=== PATIENT | male | born 1985 | race Two or more races ===

== ENCOUNTER 2017-11-09 05:15 | Day surgery (SDC) | payer OTHER ==
[2017-11-09] VITALS (10 sets, daily range): BP systolic 111–130; BP diastolic 59–72
[~2017-11-09] VITALS: Ht 182.9 cm; Wt 98.9 kg
[~2017-11-09 05:15] MED LIST: IBUPROFEN600 MG ORAL
[2017-11-09] MEDS ORDERED: celeBREX 200mg Cap **SURGERY PATIENTS ONLY ORAL ONE ×2 (05:56→06:00)
[2017-11-09] MEDS ORDERED: ceFAZolin 1gm in D5W 55ml IVP ONE (06:00)
[2017-11-09] MEDS ORDERED: oxyCONTIN 20mg tab ORAL ONE (06:00)
[2017-11-09] MEDS ORDERED: Morphine Sulfate PF 10 ML ONE (06:38)
[2017-11-09] MEDS ORDERED: Kenalog-40 1ml Vial ONE (06:38)
[2017-11-09] MEDS ORDERED: Lidocaine 1% 10mg/ml/Epi 0.005mg/ml 30ml vial INJ ONE ×2 (06:39→09:18)
[2017-11-09] MEDS ORDERED: Ketorolac 30mg Inj ONE ×2 (06:39→07:30)
[2017-11-09] MEDS ORDERED: Bupivacaine 0.25% Inj 30ml INJ ONE (06:39)
[2017-11-09] MEDS ORDERED: Duramorph PF 10mg/10ml amp IV ONE (07:00)
--- NOTE | 2017-11-09 07:20 | Pre-Procedure Note/Attestation ---
Pre-Procedure Note/Attestation Complete Prior to Procedure Planned Procedure: right Procedure Narrative: knee diagnostic arthroscopy, removal of left knee hardware Indications for Procedure Pre-Operative Diagnosis: right knee painful hardware Attestation I attest that I discussed the nature of the procedure; its benefits; risks and complications; and alternatives (and the risks and benefits of such alternatives ), prior to the procedure, with the patient (or the patient's legal small business sales representative). I attest that, if there was a reasonable possibility of needing a blood transfusion, the patient (or the patient's legal small business sales representative) was given the [facility] standardized written summary, pursuant to the Rubin Don Blood Safety Act ([place] Health and Safety Code # 1645, as amended). I attest that I re-evaluated the patient just prior to the surgery and that there has been no change in the patient's H&P, except as documented below: SOFI ALEXANDER Nov 09, 2017 07:20
--- NOTE | 2017-11-09 07:20 | Operative Note - PDOC ---
Operative Note Operative Note Pre-op Diagnosis: right knee painful hardware Procedure: right knee diagnostic arthroscopy, removal of hardware Post-op Diagnosis: same as pre-op plus Operative Findings: consistent w/pre-op dx studies Anesthesia: MAC Specimen: none Complications: none Condition: stable Estimated Blood Loss: none Implant(s) used?: No SOFI ALEXANDER Nov 09, 2017 07:20
[2017-11-09] MEDS ORDERED: Sterile Water Irrig 1000ml IRRIG ONE (07:30)
[2017-11-09] MEDS ORDERED: NS Irrig 1000ml ONE (07:30)
[2017-11-09] MEDS ORDERED: D5 1/2NS 1,000 ML IV SCH (07:30)
[2017-11-09] MEDS ORDERED: NS Irrig 4000ml IRRIG ONE (07:30)
[2017-11-09] MEDS ORDERED: Propofol 200mg/20ml IV ONE (07:30)
[2017-11-09] MEDS ORDERED: Norco 5mg/325mg tab ORAL PRN (07:30)
[2017-11-09] MEDS ORDERED: Midazolam 2mg/2ml Inj ONE (07:30)
[2017-11-09] MEDS ORDERED: LR 1000ml ONE (07:30)
[2017-11-09] MEDS ORDERED: HYDROmorphone 1mg/ml Carpuject SUBQ PRN (07:30)
[2017-11-09] MEDS ORDERED: Tylenol #3 tab (300mg/30mg) ORAL PRN (07:30)
[2017-11-09] MEDS ORDERED: fentaNYL 100 mcg/2 mL IV ONE (07:30)
[2017-11-09] MEDS ORDERED: LR 1000ml 1,000 ML IVLG SCH (07:48)
--- NOTE | 2017-11-09 07:48 | Anethesia Preoperative Eval ---
Anesthesia Pre-op PMH/ROS General Date of Evaluation: Nov 09, 2017 Time of Evaluation: 06:58 Anesthesiologist: Satish ASA Score: ASA 2 Mallampati Score Class I : Soft palate, uvula, fauces, pillars visible Class II: Soft palate, uvula, fauces visible Class III: Soft palate, base of uvula visible Class IV: Only hard plate visible Mallampati Classification: Class II Surgeon: Emery Diagnosis: R knee pain Surgical Procedure: R knee scope hardwear remowal Anesthesia History: none Family History: no anesthesia problems Allergies: Coded Allergies: No Known Allergies (Unverified , 11/08/17) Medications: see eMAR Past Medical History Cardiovascular: Denies: HTN, CAD, [place], valve dz, arrhythmia, other Pulmonary: Denies: asthma, COPD, DAVID, other Gastrointestinal/Genitourinary: Reports: GERD - mild, Denies: CRI, ESRD, other Neurologic/Psychiatric: Denies: dementia, CVA, depression/anxiety, TIA, other Endocrine: Denies: DM, hypothyroidism, steroids, other HEENT: Denies: cataract (L), cataract (R), glaucoma, KOBUK (L), KOBUK (R), other Hematology/Immune: Denies: anemia, DVT, bleeding disorder, other Musculoskeletal/Integumentary: Denies: OA, RA, DJD, DDD, edema, other Other: other - overweight PMH Narrative: as above PSxH Narrative: Multiple ortho Sx Anesthesia Pre-op Phys. Exam Physician Exam Last Vital Signs Date Time Temp Pulse Resp B/P (MAP) Pulse Ox O2 Delivery O2 Flow Rate FiO2 11/09/17 05:42 97.7 57 20 121/72 96 Room Air Constitutional: NAD Neurologic: CN 2-12 intact Cardiovascular: RRR, no M/R/G Respiratory: CTA Gastrointestinal: S/NT/ND Airway Exam Mallampati Score: Class II MO: full Neck: fexible ROM: full Teeth: intact Dentures: no upper, no lower Anesthesia Pre-op A/P Labs see chart Studies Pre-op Studies: EKG - NSR Risk Assessment & Plan Assessment: ASA 2 Plan: GA with LMA Status Change Before Surgery: No Pre-Antibiotics Drug: Ancef 2 gr. Given Within 1 Hr of Incision: Yes Time Given: 07:25 COLETTE BURRELL M.D. Nov 09, 2017 07:48
[2017-11-09] MEDS ORDERED: Hydromorphone 0.5mg/0.5ml inj IVP PRN (08:00)
[2017-11-09] MEDS ORDERED: Metoclopramide 10mg/2ml Inj IVP PRN (08:00)
[2017-11-09] MEDS ORDERED: DiphenhydrAMINE 50mg/ml Inj IVP PRN (08:00)
[2017-11-09] MEDS ORDERED: Meperidine 50mg/ml Inj(FOR RIGORS ONLY) IV PRN (08:00)
[2017-11-09] MEDS ORDERED: Ketorolac 30mg Inj IV PRN (08:00)
[2017-11-09] MEDS ORDERED: Bupivacaine 0.5% Inj 30 ml vial INJ ONE (09:18)
--- NOTE | 2017-11-09 09:52 | Immediate Post-Op Evaluation ---
Immediate Post-Op Evalulation Immediate Post-Op Evalulation Procedure: R knee arthroscopy hardwear removal Date of Evaluation: Nov 09, 2017 Time of Evaluation: 09:51 IV Fluids: 1000 Blood Products: none Estimated Blood Loss: min Urinary Output: none Blood Pressure Systolic: 132 Blood Pressure Diastolic: 64 Pulse Rate: 68 Respiratory Rate: 20 O2 Sat by Pulse Oximetry: 98 Temperature (Fahrenheit): 97.6 Pain Score (1-10): 2 Nausea: No Vomiting: No Complications none Patient Status: awake, patent Hydration Status: adequate COLETTE BURRELL M.D. Nov 09, 2017 09:52
--- NOTE | 2017-11-09 14:00 | Diagnostic Imaging Report ---
Indication: Reason For Exam: POST-OP Technique: Intraoperative images Comparison: none Findings: Single view of the right knee demonstrates 2 screws in the proximal tibia Impression: Intraoperative imaging, as described
--- NOTE | 2017-11-09 14:03 | 48 Hour Post Anesthesia Eval ---
Post Anesthesia Evaluation Procedure: R knee arthroscopy hardwear removal Date of Evaluation: Nov 09, 2017 Time of Evaluation: 14:01 Blood Pressure Systolic: 128 0: 72 Pulse Rate: 64 Respiratory Rate: 20 Temperature (Fahrenheit): 97.6 O2 Sat by Pulse Oximetry: 99 Airway: patent Nausea: No Vomiting: No Pain Intensity: 2 Hydration Status: adequate Cardiopulmonary Status: stable Mental Status/LOC: patient returned to baseline Follow-up Care/Observations: n/a Post-Anesthesia Complications: none Follow-up care needed: ready to discharge COLETTE BURRELL M.D. Nov 09, 2017 14:03
--- NOTE | 2017-11-09 20:45 | Operative Note - Dictated ---
DATE OF OPERATION: 11/09/2017 PREOPERATIVE DIAGNOSES: 1. Status post open reduction and internal fixation, right tibial plateau fracture. 2. Right knee possible internal derangement. 3. Right knee painful hardware. POSTOPERATIVE DIAGNOSES: 1. Right knee lateral meniscus tear in two areas, right knee. 2. Grade 1 chondral damage, lateral patellofemoral compartment. 3. Status post open reduction and internal fixation right tibial plateau fracture. 4. Right knee possible internal derangement. 5. Right knee painful hardware. PROCEDURES: 1. Right knee diagnostic arthroscopy and lateral meniscectomy. 2. Synovectomy of the lateral patellofemoral compartment. 3. Removal of right knee hardware, one plate and lag screws. SURGEON: Xiang Land M.D. ANESTHESIA: General. INDICATION FOR THE PROCEDURE: The patient is a pleasant gentleman, who underwent open reduction and internal fixation, right tibial plateau fracture. He still has significant pain in the lateral aspect of the right knee. So, I felt some of this pain could be related from the hardware. Therefore, we elected to undergo removal of the hardware. At the time of the removal of hardware, arthroscopy of the knee would be performed for diagnostic purposes and based on the intraoperative findings, at the time of arthroscopy, appropriate treatment such as synovectomy, chondroplasty, and meniscectomy may be performed. Risks, limitations, expectations, and complications of the procedure were discussed in detail including continued pain, need for future surgery, risk of anesthesia, medical complications, DVT, PE, and mortality risk. DESCRIPTION OF PROCEDURE: After informed consent was obtained, the patient was brought to the operating room. The patient was placed under monitored anesthesia control. Tourniquet was applied on the right proximal thigh. Right leg was prepped and draped in sterile manner. Time-out was performed. An Esmarch was used to exsanguinate the extremity. Inferolateral stab incision was then made. Trocar was introduced into knee joint. There was significant resistance consistent with significant scar tissue in the lateral gutter. Once the camera placed in the patellofemoral compartment, there was hypertrophic synovial tissue in the right patellar space area. Medial compartment was entered. There was no chondral damage. Medial working portal was established. Synovectomy of the medial intercondylar notch and lateral compartment was performed to better visualize the remaining aspect of the knee. The ACL was probed and noted to be intact. Lateral compartment was entered. There was a tear of the anterior horn, lateral meniscus. Partial lateral meniscectomy was performed using the shaver. Once that was done, camera was repositioned in the patellofemoral compartment and synovectomy was performed. At that point, a diagnostic arthroscopy was performed, which showed grade 2 chondral damage in the trochlear groove. There was also grade 2 chondral damage in the tibial plateau on the posterior lateral aspect of the weightbearing surface. At this point, the instruments removed. Portal sites were closed using Monocryl suture. Intraarticular injection containing 0.25% Marcaine with epinephrine, 40 mL of Kenalog, 30 mg of Toradol, 5 mL of Duramorph was injected. At this point, the previous skin incision was marked out. Medial and lateral skin flaps were created for closure. Lateral aspect of the tibial plateau was identified, and fascia jose miguel of the IT band and tibialis anterior was incised. The plate was then localized. Three distal screws were removed. Two proximal screws were removed. One of the screws has broken while trying to remove it. The other screw head was stripped making removal very difficult. At this point, the plate was mobilized and a Midas Devin was then used to cut the screw. Once the plate was removed, attempt to remove the screw was performed, but it was really buried in. It was felt that further attempts to remove the screw particularly in light of the fact that the other one was still in the bone was unnecessary. Therefore, once the wound was copiously irrigated, the knee incision was soaked in Betadine. Once that was done, irrigation and hemostasis was obtained. The fascia jose miguel was approximated with #1 Vicryl suture, skin was closed with 2-0 Vicryl and 3-0 Monocryl sutures. Dermabond dressing was applied. The patient was awoken and taken to recovery room with stable signs. ESTIMATED BLOOD LOSS: Minimal. COMPLICATIONS: None. SPECIMENS: None. EXPLANTS: Include 1 plate and 5 screws. Retained hardware includes two screws, one broken tip, one that was purposely cut given that was embedded into the bone and required it to be cut to remove the plate. Xiang Land M.D. DR: SHANICE JOB#: [id number] CC: COSME
== END 2017-11-09 11:50 | disposition home or self-care (01) ==
LOC: SUR 05:15
DX: S83.281A Other tear of lateral meniscus, current injury, right knee, initial encounter (principal); S83.241A Other tear of medial meniscus, current injury, right knee, initial encounter; T85.848A Pain due to other internal prosthetic devices, implants and grafts, initial encounter; X58.XXXA Exposure to other specified factors, initial encounter; Y93.9 Activity, unspecified; Y92.9 Unspecified place or not applicable; K21.9 Gastro-esophageal reflux disease without esophagitis
CPT/HCPCS: 20680; 29876; 29881; 73560; 76000; J0690; J1885; J2250; J2274; J2405; J2704; J3010; J3301; J3490; J7120; 94003; 94150